=== PATIENT | female | born 1995 ===

== ENCOUNTER 2020-11-26 23:25 | Inpatient (IN) | payer OTHER ==
[2020-11-26] MEDS ORDERED: AMPICILLIN SODIUM 2 GM VIAL ONE (23:50)
[2020-11-27] MEDS ORDERED: AMPICILLIN - 2 GM in SODIUM CHLORIDE 100 ML IVPB ONE (00:05)
[2020-11-27] MEDS ORDERED: ELECTROLYTE-148 SOLN 1,000 ML IV SCH (00:05)
[2020-11-27] MEDS ORDERED: FENTANYL/BUPIVACAINE/NS/PF - PCEA - 50 ML DISP.SYRIN EP ONE ×2 (00:12→05:06)
[2020-11-27] MEDS ORDERED: PCA PUMP NR ONE ×2 (00:12→07:15)
[2020-11-27] MEDS ORDERED: NALOXONE HCL 0.4 MG/ML VIAL IVPUSH PRN (00:51)
[2020-11-27] MEDS ORDERED: FENTANYL/BUPIVACAINE/NS/PF - PCEA - 50 ML DISP.SYRIN EP SCH (01:00)
[2020-11-27 02:24] VITALS: BMI 43.3
[2020-11-27] MEDS ORDERED: AMPICILLIN SODIUM 1 GM VIAL ONE ×2 (03:51→07:59)
[2020-11-27] MEDS ORDERED: SODIUM CHLORIDE 100 ML IVPB ONE (03:51)
[2020-11-27] MEDS: AMPICILLIN - 1 GM in SODIUM CHLORIDE 100 ML IVPB SCH ×2 (03:58→08:00)
[2020-11-27] MEDS ORDERED: OXYTOCIN 20 UNITS in 0.9% NS 20 UNIT/1,000 ML INFUS.BAG IV ONE (07:16)
[2020-11-27] MEDS ORDERED: LIDOCAINE HCL 1% PRESERVATIVE FREE - 30ML VIAL ONE (07:21)
[2020-11-27 10:07] LABS: CORD BASE EXCESS -7.7 mmol/L (0-2); CORD BASE EXCESS -8.6 mmol/L (0-2); CORD HCO3 16.3 mmHg (20-29); CORD HCO3 20.1 mmHg (20-29); CORD PCO2 30.1 mmHg (30-78); CORD PCO2 52.9 mmHg (30-78); CORD pH 7.197 (7.14-7.44); CORD pH 7.352 (7.14-7.44)
[2020-11-27] MEDS ORDERED: BENZOCAINE 28 GM HEMORRHOIDAL OINTMENT TP PRN (10:07)
[2020-11-27] MEDS ORDERED: BENZOCAINE 20% 57 GM BOTTLE TP PRN (10:07)
[2020-11-27] MEDS ORDERED: WITCH HAZEL 50% (TUCKS) 40 PAD/JAR PAD TP PRN (10:07)
[2020-11-27] MEDS ORDERED: METHYLERGONOVINE MALEATE 0.2 MG/1 ML AMP IM PRN (10:07)
[2020-11-27] MEDS ORDERED: BISACODYL 10 MG SUPP.RECT RC PRN (10:07)
[2020-11-27] MEDS ORDERED: OXYTOCIN 20 UNITS in 0.9% NS 20 UNIT/1,000 ML INFUS.BAG IV SCH (10:15)
[2020-11-27] MEDS: FERROUS SO4 325 MG TABLET (FP) PO SCH (22:23)
[2020-11-28] MEDS: ACETAMINOPHEN 325 MG TABLET (FP) PO PRN ×2 (07:44→17:08)
[2020-11-28] MEDS: IBUPROFEN 600 MG TABLET (FP) PO PRN ×2 (07:44→17:08)
[2020-11-28] MEDS: FERROUS SO4 325 MG TABLET (FP) PO SCH ×2 (09:19→22:18)
[2020-11-28] MEDS: PRENATAL VITAMINS W/ FOLIC ACID TABLET (FP) PO SCH (09:19)
[2020-11-28 10:19] LABS: BASO % 0.2 % (0-2.0); EOS % 1.3 % (0-4.5); HEMATOCRIT 26.6 % (32.4-45.2); HEMOGLOBIN 8.8 GM/dL (10.7-15.3); MCH 28.6 pg (25.7-33.7); MCHC 32.9 g/dl (32.0-36.0); MEAN CELL VOLUME 87.1 fl (80-96); MEAN PLT VOLUME 9.8 fl (7.5-11.1); MONO % 4.3 % (3.8-10.2); NEUT % 88.2 % (42.8-82.8); PLATELET COUNT 153 K/MM3 (134-434); RBC 3.06 M/mm3 (3.60-5.2); RDW 16.8 % (11.6-15.6); WHITE BLOOD COUNT 9.5 K/mm3 (4.0-10.0)
[2020-11-28 21:44] VITALS: BP 95/56; PULSE 80; TEMP 98
[2020-11-28] MEDS ORDERED: SENNOSIDES/DOCUSATE COMBO (SENNA PLUS) TABLET (UD) PO PRN (22:00)
[2020-11-29] MEDS: IBUPROFEN 600 MG TABLET (FP) PO PRN (05:03)
[2020-11-29] MEDS: ACETAMINOPHEN 325 MG TABLET (FP) PO PRN (05:03)
[2020-11-29] MEDS: PRENATAL VITAMINS W/ FOLIC ACID TABLET (FP) PO SCH (09:38)
[2020-11-29] MEDS: FERROUS SO4 325 MG TABLET (FP) PO SCH (09:39)
== END 2020-11-29 13:10 | disposition home or self-care (01) | DRG 560 ==
LOC: JDEL 23:25 → JLDR 23:47 → J3W 11-27 11:30
PROVIDERS: ADMIT Obstetrics & Gynecology; ATTEND Obstetrics & Gynecology
PROC: 10E0XZZ Delivery of Products of Conception, External Approach (ICD-10-PCS; principal; 2020-11-27)
PROC: 0HQ9XZZ Repair Perineum Skin, External Approach (ICD-10-PCS; 2020-11-27)
DX: O34.211 Maternal care for low transverse scar from previous cesarean delivery (principal); O70.9 Perineal laceration during delivery, unspecified; Z37.0 Single live birth; Z3A.39 39 weeks gestation of pregnancy
CPT/HCPCS: 36415; 36600; 59409; 82803; 85025; 86880; 86900; 86901